=== PATIENT | male | born 1980 | race Caucasian/White ===

== ENCOUNTER 2016-10-17 08:57 | Emergency (ER) | payer OTHER, BC ==
[2016-10-17] MEDS ORDERED: Balanced Salt Solution Ophth Irrig 30 ML Bottle ONE (09:06)
[2016-10-17 09:14] VITALS: BP 135/87
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
[2016-10-17] MEDS ORDERED: Balanced Salt Solution Ophth Irrig 30 ML Bottle EYEBOTH ONE (09:30)
== END 2016-10-17 09:51 | disposition home or self-care (01) ==
LOC: DL.ED 08:57
DX: Z77.21 Contact with and (suspected) exposure to potentially hazardous body fluids (principal); Z79.899 Other long term (current) drug therapy; Z88.1 Allergy status to other antibiotic agents; Y99.0 Civilian activity done for income or pay
CPT/HCPCS: 36415; 86703; 86803; 87340; 99283

== ENCOUNTER 2020-08-12 18:34 | Emergency (ER) | payer OTHER, BC | END 2020-08-12 20:31 | disposition left against medical advice (07) | LOC: DL.ED 18:34 | DX: Z53.21 Procedure and treatment not carried out due to patient leaving prior to being seen by health care provider (principal) ==

== ENCOUNTER 2020-08-13 06:25 | Emergency (ER) | payer OTHER, BC ==
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
[2020-08-13 06:46] VITALS: BP 147/88; PULSE 76
== END 2020-08-13 06:33 | disposition home or self-care (01) ==
LOC: DL.ED 06:25
DX: S61.251A Open bite of left index finger without damage to nail, initial encounter (principal); E78.00 Pure hypercholesterolemia, unspecified; Z79.899 Other long term (current) drug therapy; Z88.1 Allergy status to other antibiotic agents; Y04.1XXA Assault by human bite, initial encounter
CPT/HCPCS: 99283